=== PATIENT | female | born 1990 | race African-American/Black ===

== ENCOUNTER 2018-01-05 11:09 | Emergency (ER) | payer OTHER ==
[2018-01-05 11:15] VITALS: BP 121/79; PULSE 80; TEMP 98.6; BMI 23.9
--- NOTE | 2018-01-05 11:41 | PDOC ---
History of Present Illness - General History Source: Patient Exam Limitations: No Limitations - History of Present Illness Initial Comments: 01/05/18 13:31 The patient is a 27 year old female (6 weeks ) with a significant PMH of HIV (viral load 50, CD4 500s) who presents to the emergency department with left sided abdominal pain for 2 days. The patient states that her abdominal pain is sharp, constant, a 7/10 in severity and radiates to her back. She states that she was at home yesterday just laying down when she experienced her sudden onset of left sided abdominal pain. She states that her pain is worsened with laying down. She endorses some associated nausea. She denies any stomach pain. The patient reports that she recently traveled on a 4 hour flight to [place] 1 month ago. She denies any leg pain or swelling. The patient denies any other symptoms. She denies any chest pain, shortness of breath, headache and dizziness. She denies fever, chills, vomit, diarrhea , constipation or urinary symptoms. She denies any other complaints. <Tana Guido - Last Filed: 01/05/18 13:31> - General History Source: Patient Exam Limitations: No Limitations <Elke Villatoro - Last Filed: 01/08/18 18:42> - General Chief Complaint: Pain Stated Complaint: PAIN Time Seen by Provider: 01/05/18 11:37 Past History <Tana Guido - Last Filed: 01/05/18 13:31> - Past Medical History Asthma: No Cancer: No Cardiac Disorders: No COPD: No Diabetes: No HTN: No Liver Disease: No Seizures: No Thyroid Disease: No - Suicide/Smoking/Psychosocial Hx Smoking History: Never smoked Hx Alcohol Use: No (denies) Drug/Substance Use Hx: No Substance Use Type: Alcohol <Elke Villatoro - Last Filed: 01/08/18 18:42> - Past Medical History Allergies/Adverse Reactions: Allergies Allergy/AdvReac Type Severity Reaction Status Date / Time No Known Allergies Allergy Verified 01/05/18 11:15 Home Medications: Ambulatory Orders Valacyclovir HCl [Valtrex -] 500 mg PO BID #14 tablet 04/16/17 Emtricitabine/Tenofovir [Truvada] 1 tab PO DAILY #30 tablet 09/15/17 Raltegravir [Isentress -] 400 mg PO BID #60 tab 09/15/17 Vit/Iron Fum/Folic AC [ Tablet] 1 each PO DAILY #30 tablet Review of Systems - Review of Systems Able to Perform ROS?: Yes Comments:: 01/05/18 13:32 GENERAL/CONSTITUTIONAL: No fever or chills. No weakness. HEAD, EYES, EARS, NOSE AND THROAT: No change in vision. No ear pain or discharge. No sore throat. CARDIOVASCULAR: No chest pain or shortness of breath. RESPIRATORY: No cough, wheezing, or hemoptysis. GASTROINTESTINAL: (+)nausea. No vomiting, diarrhea or constipation. GENITOURINARY: No dysuria, frequency, or change in urination. MUSCULOSKELETAL: (+)left sided abdominal pain. No joint or muscle swelling. No neck or back pain. SKIN: No rash NEUROLOGIC: No headache, vertigo, loss of consciousness, or change in strength/ sensation. ENDOCRINE: No increased thirst. No abnormal weight change. HEMATOLOGIC/LYMPHATIC: No anemia, easy bleeding, or history of blood clots. ALLERGIC/IMMUNOLOGIC: No hives or skin allergy. <Tana Guido - Last Filed: 01/05/18 13:31> *Physical Exam - Vital Signs Last Vital Signs Temp Pulse Resp BP Pulse Ox 98.6 F 80 18 121/79 99 01/05/18 11:13 01/05/18 11:13 01/05/18 11:13 01/05/18 11:13 01/05/18 11:13 - Physical Exam Comments: 01/05/18 13:32 GENERAL: The patient is in no acute distress. HEAD: Normal with no signs of trauma. EYES: PERRLA, EOMI, sclera anicteric, conjunctiva clear. ENT: Ears normal, nares patent, oropharynx clear without exudates. Moist mucous membranes. NECK: Normal range of motion, supple without lymphadenopathy, JVD, or masses. LUNGS: Breath sounds equal, clear to auscultation bilaterally. No wheezes, and no crackles. HEART:Regular rate and rhythm, normal S1 and S2 without murmur, rub or gallop. ABDOMEN: Soft, nontender, normoactive bowel sounds. No guarding, no rebound. No masses palpable. EXTREMITIES: Normal range of motion, no edema. No clubbing or cyanosis. No erythema, or tenderness. NEUROLOGICAL: Cranial nerves II through XII grossly intact. Normal speech. No focal neurological deficits. MUSCULOSKELETAL: Back non-tender to palpation, no CVA tenderness SKIN: Warm, Dry, normal turgor, no rashes or lesions noted. <Tana Guido - Last Filed: 01/05/18 13:31> - Vital Signs Last Vital Signs Temp Pulse Resp BP Pulse Ox 98.6 F 80 18 121/79 99 01/05/18 11:13 01/05/18 11:13 01/05/18 11:13 01/05/18 11:13 01/05/18 11:13 <Elke Villatoro - Last Filed: 01/08/18 18:42> ED Treatment Course - LABORATORY CBC & Chemistry Diagram: 01/05/18 11:54 01/05/18 11:54 - ADDITIONAL ORDERS Additional order review: Laboratory Results 01/05/18 01/05/18 01/05/18 12:14 11:54 11:54 D-Dimer 567 H Sodium 138 Potassium 3.9 Chloride 107 Carbon Dioxide 22 Anion Gap 9 BUN 14 Creatinine 0.6 Creat Clearance w eGFR > 60 Random Glucose 86 Calcium 9.2 Total Bilirubin 0.3 AST 17 ALT 17 Alkaline Phosphatase 63 Total Protein 7.9 Albumin 3.8 Beta HCG, Quant 320651.2 Urine Color Urine Appearance Urine pH Ur Specific [place] Urine Protein Urine Glucose (UA) Urine Ketones Urine Blood Urine Nitrite Urine Bilirubin Urine Urobilinogen Ur Leukocyte Esterase Blood Type O POSITIVE Antibody Screen Negative 01/05/18 11:54 D-Dimer Sodium Potassium Chloride Carbon Dioxide Anion Gap BUN Creatinine Creat Clearance w eGFR Random Glucose Calcium Total Bilirubin AST ALT Alkaline Phosphatase Total Protein Albumin Beta HCG, Quant Urine Color Yellow Urine Appearance Clear Urine pH 6.0 Ur Specific [place] 1.024 Urine Protein Negative Urine Glucose (UA) Negative Urine Ketones Negative Urine Blood Negative Urine Nitrite Negative Urine Bilirubin Negative Urine Urobilinogen Negative Ur Leukocyte Esterase Negative Blood Type Antibody Screen 01/05/18 11:54 RBC 4.69 MCV 87.2 MCHC 34.3 RDW 12.4 MPV 8.7 Neutrophils % 57.6 Lymphocytes % 31.4 Monocytes % 6.8 Eosinophils % 2.7 D Basophils % 1.5 - Medications Given in the ED: ED Medications Discontinued Medications Generic Name Dose Route Start Last Admin Trade Name Freq PRN Reason Stop Dose Admin Acetaminophen 975 mg 01/05/18 12:27 01/05/18 12:54 Tylenol - PO 01/05/18 12:28 975 mg ONCE ONE Administration <Tana Guido - Last Filed: 01/05/18 13:31> - LABORATORY CBC & Chemistry Diagram: 01/05/18 11:54 01/05/18 11:54 <Elke Villatoro - Last Filed: 01/08/18 18:42> Medical Decision Making - Medical Decision Making 01/05/18 15:28 Ms Strickland is a 27-year-old female with a history of HIV (CD4 500, viral load 50 , on antiretrovirals). She presents emergency department with a complaint of left-sided chest pain Patient is currently a possibly 7 weeks by dates, reports that yesterday she developed left sided mid axillary lower thoracic pain which she describes as sharp, rated 7/10. No heavy lifting. Pain is worse with movement or laying back. No fevers, chills, cough. Selected Entries 01/05/18 11:13 Temperature 98.6 F Pulse Rate 80 Respiratory 18 Rate Blood Pressure 121/79 O2 Sat by Pulse 99 Oximetry (%) Laboratory Tests 01/05/18 01/05/18 01/05/18 11:54 11:54 11:54 WBC 7.6 Hgb 14.0 Hct 40.9 Plt Count 223 D D-Dimer BUN 14 Creatinine 0.6 Beta HCG, Quant 909156.2 Urine Blood Negative Urine Nitrite Negative Ur Leukocyte Esterase Negative 01/05/18 12:14 WBC Hgb Hct Plt Count D-Dimer 567 H BUN Creatinine Beta HCG, Quant Urine Blood Urine Nitrite Ur Leukocyte Esterase 01/05/18 16:30 Work up as follows (Duarte algorhithm): Bilateral lower extremity duplexes negative Pt is low risk for PE PERC negative - 27 years old, no tachycardia, no hypoxia D dimer <750 Bedside US - no right heart strain, no pericardial effusion, No pleural effusion, no signs of pneumonia 01/05/18 16:34 Pain improved with tylenol Will discharge to home Follow up with PMD/OB within 1 week Pt asked to return to the ER IMMEDIATELY with any other concerns or complaints, recurrent symptoms, new symptoms 01/05/18 16:39 <Elke Villatoro - Last Filed: 01/08/18 18:42> *DC/Admit/Observation/Transfer - Attestations Scribe Attestion: 01/05/18 13:32 Documentation prepared by Tana Guido, acting as healthcare or medical for Elke Villatoro MD. <Tana Guido - Last Filed: 01/05/18 13:31> - Discharge Dispostion Decision to Admit order: No <Elke Villatoro - Last Filed: 01/08/18 18:42> Diagnosis at time of Disposition: Musculoskeletal chest pain - Discharge Dispostion Disposition: HOME Condition at time of disposition: Stable - Patient Instructions Printed Discharge Instructions: DI for Atypical Chest Pain Additional Instructions: Please read the [facility] ED Care Sheets describing your diagnosis. PLEASE NOTE we suggest at a minimum that you review all symptoms and final test results with a physician that will provide ongoing care for you. THANK YOU for allowing us to help begin your care of this latest issue. Keep in mind the treatment performed in the Emergency Department is NOT complete until you have followed up with your Doctor. We want you to return to the ED as soon as possible if symptoms get worse or if you have any problems whatsoever. We advised you to take the following medication(s) as directed: over the counter tylenol
[2018-01-05 12:16] LABS: BASO % 1.5 % (0-2.0); EOS % 2.7 % (0-4.5); HEMATOCRIT 40.9 % (32.4-45.2); LYMPH % 31.4 % (8-40); MCH 29.9 pg (25.7-33.7); MCHC 34.3 g/dl (32.0-36.0); MEAN CELL VOLUME 87.2 fl (80-96); MEAN PLT VOLUME 8.7 fl (7.5-11.1); MONO % 6.8 % (3.8-10.2); NEUT % 57.6 % (42.8-82.8); PLATELET COUNT 223 K/MM3 (134-434); RBC 4.69 M/mm3 (3.60-5.2); RDW 12.4 % (11.6-15.6); WHITE BLOOD COUNT 7.6 K/mm3 (4.0-10.0)
[2018-01-05 12:17] LABS: URINE APPEARANCE CLEAR; URINE BILIRUBIN NEGATIVE (<2.0 mg/dL); URINE COLOR YELLOW; URINE GLUCOSE (UA) NEGATIVE (NEGATIVE); URINE KETONE NEGATIVE (NEGATIVE); URINE LEUK ESTERASE NEGATIVE (NEGATIVE); URINE NITRITE NEGATIVE (NEGATIVE); URINE PROTEIN NEGATIVE (NEGATIVE); URINE UROBILINOGEN NEGATIVE mg/dL (0.2-1.0)
[2018-01-05] MEDS ORDERED: ACETAMINOPHEN 325 MG TABLET (FP) PO ONE (12:27)
[2018-01-05 12:46] LABS: ALBUMIN 3.8 g/dl (3.4-5.0); ANION GAP 9 MMOL/L (8-16); BILIRUBIN,TOTAL 0.3 mg/dL (0.2-1); BLOOD UREA NITROGEN 14 mg/dL (7-18); CALCIUM 9.2 mg/dL (8.5-10.1); CHLORIDE 107 mmol/L (98-107); CO2 22 mmol/L (21-32); CREATININE 0.6 mg/dL (0.55-1.3); GLUCOSE,RANDOM 86 mg/dL (74-106); POTASSIUM 3.9 mmol/L (3.5-5.1); SGOT/AST 17 U/L (15-37); SGPT/ALT 17 U/L (13-61); SODIUM 138 mmol/L (136-145); TOT PROT 7.9 g/dl (6.4-8.2)
[2018-01-05] MEDS ORDERED: ACETAMINOPHEN 325 MG TABLET (FP) ONE (12:49)
[2018-01-05 13:15] LABS: ALK PHOS 63 U/L (45-117)
== END 2018-01-05 15:41 | disposition home or self-care (01) ==
LOC: JER 11:09
DX: O26.891 Other specified pregnancy related conditions, first trimester (principal); Z3A.01 Less than 8 weeks gestation of pregnancy; R07.89 Other chest pain
CPT/HCPCS: 36415; 76801-TC; 80053; 81003; 84702; 85025; 85379; 86850; 86900; 86901; 87086; 93970-TC; 99283-25

== ENCOUNTER 2019-03-07 12:49 | Emergency (ER) | payer OTHER ==
[2019-03-07 12:54] VITALS: BP 131/78; PULSE 86; TEMP 98; BMI 26.0
--- NOTE | 2019-03-07 14:08 | PDOC ---
History of Present Illness - General Chief Complaint: Pain Stated Complaint: RT. SIDE PAIN Time Seen by Provider: 03/07/19 13:33 - History of Present Illness Initial Comments: 03/07/19 14:06 CHIEF COMPLAINT: right sided pain HISTORY OF PRESENT ILLNESS: 28 yo F with hx of HIV (undetectable VL 12/21/18, CD4 902) presents to fast track with right sided pain. Patient reports feeling pain when lying down and breathing deeply. Patient denies any dysuria, hematuria, urinary frequency, fever, nausea, vomiting, or diarrhea. Denies any trauma or injury to her right side. Patient reports she felt similar pain during her (delivered July of this year). Patient denies any recent travel or surgery but does endorse use of hormonal contraceptives (depo, last dose 3 months ago). No recent travel or sick contacts. PAST MEDICAL HISTORY: HIV FAMILY HISTORY: Denies SOCIAL HISTORY: Denies tobacco, alcohol, illicit drug use. SURGICAL HISTORY: Denies ALLERGIES: No known drug allergies REVIEW OF SYSTEMS General/Constitutional: Denies fever or chills. Denies weakness, weight change. HEENT: Denies change in vision. Denies ear pain or discharge. Denies sore throat. Cardiovascular: Denies chest pain or shortness of breath. Respiratory: Denies cough, wheezing, or hemoptysis. Gastrointestinal: Denies nausea, vomiting, diarrhea or constipation. Denies rectal bleeding. Genitourinary: Denies dysuria, frequency, or change in urination. Musculoskeletal: Pain to R side/rib x 2 weeks. Denies joint or muscle swelling or pain. Denies neck or back pain. Skin and breasts: Denies rash or easy bruising. Neurologic: Denies headache, vertigo, loss of consciousness, or loss of sensation. Psychiatric: Denies depression or anxiety. PHYSICAL EXAM General Appearance: Well-appearing, appropriately dressed. No apparent distress , no intoxication. HEENT: EOMI, PERRLA, normal ENT inspection, normal voice, TMs normal, pharynx normal. No conjunctival pallor. No photophobia, scleral icterus. Neck: Supple. Trachea midline. No tenderness, rigidity, carotid bruit, stridor , lymphadenopathy, or thyromegaly. Respiratory/Chest: Lungs CTAB. No shortness of breath, chest tenderness, respiratory distress, accessory muscle use. No crackles, rales, rhonchi, stridor , wheezing, dullness Cardiovascular: RRR. S1, S2. No JVD, murmur, bradycardia, tachycardia. Vascular Pulses: Dorsalis-Pedis (R): 2+, Dorsalis-Pedis (L): 2+ Gastrointestinal/Abdominal:Normal bowel sounds. Abdomen soft, non-distended. No tenderness or rebound tenderness. No organomegaly, pulsatile mass, guarding , hernia, hepatomegaly, splenomegaly. Lymphatic: No adenopathy, tenderness. Musculoskeletal/Extremities: R CVA and R rib tenderness on palpation. FROM of all extremities, normal capillary refill. Pelvis Stable. No CVA tenderness. No tenderness to extremities, pedal edema, swelling, erythema or deformity. Integumentary: Appropriate color, dry, warm. No cyanosis, erythema, jaundice or rash Neurologic: recycle worker II-XII intact. Fully oriented, alert. Appropriate mood/affect. Motor strength 5/5. No appreciable EOM palsy, facial droop or sensory deficit. Past History - Past Medical History Allergies/Adverse Reactions: Allergies Allergy/AdvReac Type Severity Reaction Status Date / Time No Known Allergies Allergy Verified 03/07/19 12:54 Home Medications: Ambulatory Orders Valacyclovir HCl [Valtrex -] 500 mg PO BID #14 tablet 04/16/17 Vit/Iron Fum/Folic AC [ Tablet] 1 each PO DAILY #30 tablet 08/05 Medroxyprogesterone Acetate [Depo-Provera] 150 mg IM ONCE #1 syringe 12/23/18 Bictegrav/Emtricit/Tenofov Ala [Biktarvy 50-200-25 mg Tablet] 1 each PO DAILY # 30 tablet 01/25/19 Asthma: No Cancer: No Cardiac Disorders: No COPD: No Diabetes: No HTN: No Liver Disease: No Seizures: No Thyroid Disease: No - Reproductive History (#): 1 Para: 0 - Psycho Social/Smoking Cessation Hx Smoking History: Never smoked Hx Alcohol Use: No (denies) Drug/Substance Use Hx: No Substance Use Type: Alcohol *Physical Exam - Vital Signs Last Vital Signs Temp Pulse Resp BP Pulse Ox 98 F 86 18 131/78 98 03/07/19 12:51 03/07/19 12:51 03/07/19 12:51 03/07/19 12:51 03/07/19 12:51 ED Treatment Course - LABORATORY CBC & Chemistry Diagram: 03/07/19 17:00 03/07/19 17:00 Medical Decision Making - Medical Decision Making 03/07/19 14:17 28 yo F with hx HIV presents to fast track with right sided pain. -UA, upreg -rib x-ray Given worsening chest pain with inspiration and use of hormonal contraceptives, concern for risk of PE. -D-dimer to r/o DVT. 03/07/19 16:08 D-dimer mildly elevated. Will order PE workup and transferred to main ED. Discussed case with attending MD Brito and head charger Tio. Discharge - Discharge Information Problems reviewed: Yes Clinical Impression/Diagnosis: Right-sided chest wall pain Condition: Improved Disposition: HOME - Follow up/Referral - Patient Discharge Instructions Patient Printed Discharge Instructions: DI for Muscle Strain Additional Instructions: You have been seen in the Emergency Department for your right-sided pain. Your labs, EKG, and CT scan show no evidence of an emergent condition such as a rib fracture, lung disease, heart attack, or clot in your lungs at this time. Your pain is most likely a strain or sprain of a ligament or muscle. If you experience pain, you can take Tylenol or Ibuprofen as directed on the medication bottle, but do not exceed 3g of Ibuprofen or 4g of Tylenol a day. Follow up with your primary care doctor at the [facility] within 1 week. There are some minor abnormalities on your EKG which could be benign (normal), but make sure to tell your primary care doctor in case they want further testing or evaluation of your heart by a laborer chicken farm (heart doctor). Return to the ED immediately if you experience worsening pain not controlled by over the counter medications, difficulty breathing, chest pain, dizziness, or any other new or worsening symptom. - Post Discharge Activity
[2019-03-07 14:28] LABS: EPI CELLS 0.8 /HPF (0-5/HPF); HYALINE CASTS 0 /lpf (0-8); PH,URINE 6.5 (5.0-8.0); URINE APPEARANCE CLEAR; URINE BACTERIA 14.5 /hpf (NEGATIVE); URINE BILIRUBIN NEGATIVE (NEGATIVE); URINE COLOR YELLOW; URINE GLUCOSE (UA) NEGATIVE (NEGATIVE); URINE KETONE TRACE (NEGATIVE); URINE LEUK ESTERASE NEGATIVE (NEGATIVE); URINE NITRITE NEGATIVE (NEGATIVE); URINE PROTEIN 2+ (NEGATIVE); URINE RBC 1 /hpf (0-4); URINE WBC 0 /hpf (0-5)
--- NOTE | 2019-03-07 17:08 | PDOC ---
*Physical Exam - Vital Signs Last Vital Signs Temp Pulse Resp BP Pulse Ox 98 F 86 18 131/78 98 03/07/19 12:51 03/07/19 12:51 03/07/19 12:51 03/07/19 12:51 03/07/19 12:51 ED Treatment Course - LABORATORY CBC & Chemistry Diagram: 03/07/19 17:00 03/07/19 17:00 - ADDITIONAL ORDERS Additional order review: Laboratory Results 03/07/19 03/07/19 03/07/19 14:21 13:57 13:57 D-Dimer 588 H Urine Color Yellow Urine Appearance Clear Urine pH 6.5 Ur Specific [place] 1.026 Urine Protein 2+ H Urine Glucose (UA) Negative Urine Ketones Trace H Urine Blood Negative Urine Nitrite Negative Urine Bilirubin Negative Urine Urobilinogen 1.0 Ur Leukocyte Esterase Negative Urine WBC (Auto) 0 Urine RBC (Auto) 1 Urine Casts (Auto) 0 U Epithel Cells (Auto) 0.8 Urine Bacteria (Auto) 14.5 Urine HCG, Qual Negative Medical Decision Making - Medical Decision Making 03/07/19 17:08 Reviewed note. Pt seen and assessed at bedside. 28yo F hx HIV presents from home with gradual onset atraumatic nonreproducible pleuritic stabbing R lateral rib/torso pain constant x4 days, similar to pain during years ago, no associated sx including SOB/palpitations/N/V/F/D/ C/abdominal pain/diaphoresis/numbness/tingling/weakness/headache/leg swelling/ calf tenderness. VSS, afebrile. PE: RRR, lungs CTAB, no calf swelling. No abnormalities on exam. Comfortable- appearing. Presentation and d-dimer (588) concerning for PE. Lack of urinary sx or flank pain make UTI/pyelo of low concern - UA negative. negative. Also consider metabolic derangement, anemia, cardiac pathology (low concern, no RFs; trop x1 and EKG), or MSK. -CBC,CMP,Coags,Trop,Mg,Phos,HCG -EKG -CTPE -Dispo: pending w/u 03/07/19 20:12 CTPE reviewed. No e/o PE. Labs and EKG reviewed. D-dimer 588, no other concerning findings. Likely MSK. Pt comfortable, safe for dc. Will dc home with [facility] f/u. Return precautions given. Pt understands all dc instructions and all questions were answered. Discharge - Discharge Information Problems reviewed: Yes Clinical Impression/Diagnosis: Right-sided chest wall pain Condition: Improved Disposition: HOME - Admission No - Follow up/Referral - Patient Discharge Instructions Patient Printed Discharge Instructions: DI for Muscle Strain Additional Instructions: You have been seen in the Emergency Department for your right-sided pain. Your labs, EKG, and CT scan show no evidence of an emergent condition such as a rib fracture, lung disease, heart attack, or clot in your lungs at this time. Your pain is most likely a strain or sprain of a ligament or muscle. If you experience pain, you can take Tylenol or Ibuprofen as directed on the medication bottle, but do not exceed 3g of Ibuprofen or 4g of Tylenol a day. Follow up with your primary care doctor at the [facility] within 1 week. There are some minor abnormalities on your EKG which could be benign (normal), but make sure to tell your primary care doctor in case they want further testing or evaluation of your heart by a granite polisher apprentice (heart doctor). Return to the ED immediately if you experience worsening pain not controlled by over the counter medications, difficulty breathing, chest pain, dizziness, or any other new or worsening symptom. - Post Discharge Activity
[2019-03-07] MEDS ORDERED: ACETAMINOPHEN 500 MG TABLET (FP) PO ONE (17:16)
[2019-03-07 17:24] LABS: BASO % 0.8 % (0-2.0); HEMATOCRIT 42.7 % (32.4-45.2); HEMOGLOBIN 14.3 GM/dL (10.7-15.3); LYMPH % 30.8 % (8-40); MCH 28.7 pg (25.7-33.7); MCHC 33.6 g/dl (32.0-36.0); MEAN CELL VOLUME 85.5 fl (80-96); MONO % 9.1 % (3.8-10.2); NEUT % 57.3 % (42.8-82.8); PLATELET COUNT 268 K/MM3 (134-434); RDW 12.6 % (11.6-15.6); WHITE BLOOD COUNT 6.9 K/mm3 (4.0-10.0)
[2019-03-07 17:37] LABS: INR 1.05 (0.83-1.09); PROTHROMBIN TIME (PATIENT) 12.4 SEC (9.7-13.0)
[2019-03-07 17:39] LABS: ACTIVATED PTT 38.2 SECONDS (25.2-36.5)
--- NOTE | 2019-03-07 17:57 | PDOC ---
Documentation entered by Vivien Levy SCRIBE, acting as scribe for Rama Elizabeth MD. Rama Elizabeth MD: This documentation has been prepared by the Cam roland Sammi, SCRIBE, under my direction and personally reviewed by me in its entirety. I confirm that the documentation accurately reflects all work, treatment, procedures, and medical decision making performed by me. Attending Attestation - Resident Resident Name: Ritu Vu - ED Attending Attestation I have performed the following: I have examined & evaluated the patient, The case was reviewed & discussed with the resident, I agree w/resident's findings & plan, Exceptions are as noted - HPI HPI: 03/07/19 17:28 The patient is a 28 year old female with PMH of HIV presents for evaluation of 4 days of constant, pleuritic, right sided chest pain. She describes gradual onset of chest pain. Denies fever, chills, or SOB. Denies abdominal pain, nausea , vomiting, or diarrhea. - Physicial Exam PE: 03/07/19 17:53 28-year-old female presents with pleuritic chest pain And right sided anterior rib cage pain 03/07/19 20:31 Slender ambulatory 28-year-old female in no acute distress Head normocephalic atraumatic Neck supple Lungs are clear to auscultation bilaterally Torso complaint of tenderness to right anterior rib cage Abdomen is flat nontender Skin warm and dry Neuro alert and oriented x3 ambulating with ease - Medical Decision Making 03/07/19 17:56 Patient is immunocompromised will rule out PE and a CAT scan is pending 03/07/19 20:33 CT of the chest is negative for any pulmonary embolus, effusions, consolidations or infiltrates,ptx Her labs were unremarkable Impression musculoskeletal strain Plan follow-up with your PCP Her labs were unremarkable Impression musculoskeletal strain Plan follow-up with your PCP
[2019-03-07] MEDS ORDERED: ACETAMINOPHEN 325 MG TABLET (FP) ONE (18:30)
[2019-03-07 18:51] LABS: ALBUMIN 3.8 g/dl (3.4-5.0); ALK PHOS 82 U/L (45-117); ANION GAP 8 MMOL/L (8-16); BILIRUBIN,TOTAL 0.4 mg/dL (0.2-1); CALCIUM 9.3 mg/dL (8.5-10.1); CHLORIDE 109 mmol/L (98-107); CO2 23 mmol/L (21-32); CREATININE 0.8 mg/dL (0.55-1.3); GLUCOSE,RANDOM 122 mg/dL (74-106); MAGNESIUM 2.3 mg/dL (1.8-2.4); POTASSIUM 3.7 mmol/L (3.5-5.1); SGOT/AST 17 U/L (15-37); SGPT/ALT 22 U/L (13-61); SODIUM 140 mmol/L (136-145); TOT PROT 7.7 g/dl (6.4-8.2)
--- NOTE | 2019-03-08 10:36 | EKG ---
Test Reason : Blood Pressure : / mmHG Vent. Rate : 073 BPM Atrial Rate : 073 BPM P-R Int : 150 ms QRS Dur : 072 ms QT Int : 370 ms P-R-T Axes : 053 089 039 degrees QTc Int : 407 ms NORMAL SINUS RHYTHM WITH SINUS ARRHYTHMIA NONSPECIFIC ST ABNORMALITY ABNORMAL ECG NO PREVIOUS ECGS AVAILABLE Confirmed by WENDI LEONARD MD ([id number]) on 03/08/2019 10:36:25 AM Referred By: Confirmed By:WENDI LEONARD MD
--- NOTE | 2019-03-10 13:26 | EKG ---
Test Reason : Blood Pressure : / mmHG Vent. Rate : 091 BPM Atrial Rate : 091 BPM P-R Int : 142 ms QRS Dur : 078 ms QT Int : 338 ms P-R-T Axes : 066 091 034 degrees QTc Int : 415 ms NORMAL SINUS RHYTHM POSSIBLE LEFT ATRIAL ENLARGEMENT RIGHTWARD AXIS WHEN COMPARED WITH ECG OF 01-MAR-2019 00:36, NO SIGNIFICANT CHANGE WAS FOUND Confirmed by BEVERLY PAULINO MD ([id number]) on 03/10/2019 1:25:40 PM Referred By: Confirmed By:BEVERLY PAULINO MD
== END 2019-03-07 20:38 | disposition home or self-care (01) ==
LOC: JER 12:49 → JERFT 12:49 → JER 20:38
DX: R07.89 Other chest pain (principal); Z79.3 Long term (current) use of hormonal contraceptives; Z21 Asymptomatic human immunodeficiency virus [HIV] infection status
CPT/HCPCS: 36415; 71046-TC-FY; 71275-TC; 80053; 81003; 83735; 84100; 84484; 84702; 84703; 85025; 85379; 85610; 85730; 87086; 93005; 93010; 99284-25; Q9967